=== PATIENT | male | born 1955 | race Caucasian/White ===

== ENCOUNTER 2020-02-20 12:35 | Emergency (ER) | payer OTHER ==
--- NOTE | 2020-02-20 13:40 | RAD REPORT ---
EXAM DESCRIPTION: US - Extremity Nonvascular Limited - 02/20/2020 1:25 pm CLINICAL HISTORY: Left forearm pain and swelling COMPARISON: None FINDINGS: Sonographic evaluation of the left posterior forearm does not reveal a cystic or solid mas s. No abscess demonstrated. IMPRESSION: No abscess seen
--- NOTE | 2020-02-20 13:46 | ER ---
Nurse's Notes [facility] Name: César Stevenson Age: 64 yrs Sex: Male : 1955 Arrival Date: 02/20/2020 Time: 12:38 Bed 23 Private MD: Diagnosis: Bitten or stung by nonvenomous insect and other nonvenomous arthropods Presentation: 02/19 12:45 Chief complaint: Patient states: I woke up to a rash like an insect bite on my L ca1 forearm this morning. It's swollen and it hurts. Coronavirus screen: Proceed with normal triage. Patient denies a cough. Patient denies shortness of breath or difficulty breathing. Patient denies measured and/or subjective temperature greater than 100.4F prior to today's visit. Patient denies travel on a cruise ship or to a country the [facility] currently lists as an affected area. Patient denies contact with known and/or suspected case of COVID-19. Ebola Screen: Patient negative for fever greater than or equal to 101.5 degrees Fahrenheit, and additional compatible Ebola Virus Disease symptoms Patient denies exposure to infectious person. Patient denies travel to an Ebola-affected area in the 21 days before illness onset. No symptoms or risks identified at this time. Initial Sepsis Screen: Does the patient meet any 2 criteria? No. Patient's initial sepsis screen is negative. Does the patient have a suspected source of infection? No. Patient's initial sepsis screen is negative. Risk Assessment: Do you want to hurt yourself or someone else? Patient reports no desire to harm self or others. Onset of symptoms was February 20, 2020. 12:45 Method Of Arrival: Ambulatory ca1 12:45 Acuity: GER 4 ca1 Historical: - Allergies: 12:48 No Known Allergies; ca1 - Home Meds: 12:48 None [Active]; ca1 - PMHx: 12:48 Hernia; ca1 - PSHx: 12:48 Hernia repair; ca1 - Immunization history:: Adult Immunizations up to date. - Social history:: Smoking status: Patient reports the use of cigarette tobacco products, smokes one-half pack cigarettes per day. Screenin:22 Abuse screen: Denies threats or abuse. Denies injuries from another. Nutritional iw screening: No deficits noted. Tuberculosis screening: No symptoms or risk factors identified. Assessment: 13:20 General: Appears in no apparent distress. comfortable, Behavior is calm, cooperative. iw Pain: Complains of pain in dorsal aspect of left forearm. Neuro: Level of Consciousness is awake, alert, obeys commands, Oriented to person, place, time, situation, Moves all extremities. Full function. Vital Signs: 12:45 BP 149 / 88; Pulse 81; Resp 18 S; Temp 97.9(TE); Pulse Ox 96% on R/A; Weight 70.31 kg ca1 (R); Height 5 ft. 9 in. (175.26 cm) (R); Pain 7/10; 12:45 Body Mass Index 22.89 (70.31 kg, 175.26 cm) ca1 ED Course: 12:38 Patient arrived in ED. as 12:38 Shwetha Singh FNP-C is PHCP. kb 12:38 Apolinar Burnham MD is Attending Physician. kb 12:47 Triage completed. ca1 12:48 Arm band placed on right wrist. ca1 13:20 Yovana Farr, RN is Primary Nurse. iw 13:26 US Extrmty Nonvasular Limited In Process Unspecified. EDMS 13:28 Ultrasound completed. hr Administered Medications: No medications were administered Outcome: 13:45 Discharge ordered by MD. kb 14:09 Patient left the ED. iw Signatures: Dispatcher [employer] EDMS Shwetha Singh FNP-C HEAD GAUGE UNIT OPERATOR-CkHui Christie hr Shannan Castañeda as Yovana Farr, STEVENSON GAMINO iw Mayra Walker RN RN ca1 Corrections: (The following items were deleted from the chart) 12:48 12:45 Acuity: GER 4 ca1 ca1 12:49 12:45 Acuity: GER 5 ca1 ca1 12:50 12:48 General: Appears in no apparent distress. comfortable, Behavior is calm, ca1 cooperative, appropriate for age, ca1 12:50 12:48 Pain: Complains of pain in left arm ca1 ca1 12:50 12:48 Neuro: Level of Consciousness is awake, alert, obeys commands, Oriented to ca1 person, place, time, situation, ca1 12:50 12:48 Derm: Skin is intact, is healthy with good turgor, Skin is pink, warm \T\ dry. ca1 ca1 12:50 12:48 Derm: Skin is intact, is healthy with good turgor, Skin is pink, warm \T\ dry. ca1 ca1 12:50 12:49 Musculoskeletal: Circulation, motion, and sensation intact. Capillary refill ca1 ca1
--- NOTE | 2020-02-20 13:46 | EDPHYS ---
Physician Documentation [facility] Name: César Stevenson Age: 64 yrs Sex: Male : 1955 Arrival Date: 02/20/2020 Time: 12:38 Bed 23 Private MD: ED Physician Apolinar Burnham HPI: 02/19 13:14 This 64 yrs old Male presents to ER via Ambulatory with complaints of Insect kb Bite. 13:14 the patient presents with a swollen area of the dorsal aspect of left forearm. kb Description: swollen. Onset: The symptoms/episode began/occurred this morning. Possible cause(s): spider bite. Associated signs and symptoms: Pertinent positives: swelling, Pertinent negatives: discharge, drainage, erythema, foreign body sensation, fever, headache, nausea, shortness of breath, vomiting. Modifying factors: the symptoms are alleviated by nothing, the symptoms are aggravated by nothing. Severity of symptoms: At their worst the symptoms were mild, in the emergency department the symptoms are unchanged. The patient has not experienced similar symptoms in the past. The patient has not recently seen a physician. Historical: - Allergies: 12:48 No Known Allergies; ca1 - Home Meds: 12:48 None [Active]; ca1 - PMHx: 12:48 Hernia; ca1 - PSHx: 12:48 Hernia repair; ca1 - Immunization history:: Adult Immunizations up to date. - Social history:: Smoking status: Patient reports the use of cigarette tobacco products, smokes one-half pack cigarettes per day. ROS: 13:12 Constitutional: Negative for fever, chills, and weight loss, Cardiovascular: Negative kb for chest pain, palpitations, and edema, Respiratory: Negative for shortness of breath, cough, wheezing, and pleuritic chest pain, Abdomen/GI: Negative for abdominal pain, nausea, vomiting, diarrhea, and constipation, MS/Extremity: Negative for injury and deformity, Neuro: Negative for headache, weakness, numbness, tingling, and seizure. 13:12 Skin: Positive for swelling, of the dorsal aspect of left forearm. Exam: 13:12 Constitutional: This is a well developed, well nourished patient who is awake, alert, kb and in no acute distress. Head/Face: Normocephalic, atraumatic. Chest/axilla: Normal chest wall appearance and motion. Nontender with no deformity. No lesions are appreciated. Cardiovascular: Regular rate and rhythm with a normal S1 and S2. No gallops, murmurs, or rubs. Normal PMI, no JVD. No pulse deficits. Respiratory: Lungs have equal breath sounds bilaterally, clear to auscultation and percussion. No rales, rhonchi or wheezes noted. No increased work of breathing, no retractions or nasal flaring. Abdomen/GI: Soft, non-tender, with normal bowel sounds. No distension or tympany. No guarding or rebound. No evidence of tenderness throughout. MS/ Extremity: Pulses equal, no cyanosis. Neurovascular intact. Full, normal range of motion. Neuro: Awake and alert, GCS 15, oriented to person, place, time, and situation. Cranial nerves II-XII grossly intact. Motor strength 5/5 in all extremities. Sensory grossly intact. Cerebellar exam normal. Normal gait. 13:12 Skin: small area of swelling to left forearm, no redness, warmth or drainage. Vital Signs: 12:45 BP 149 / 88; Pulse 81; Resp 18 S; Temp 97.9(TE); Pulse Ox 96% on R/A; Weight 70.31 kg ca1 (R); Height 5 ft. 9 in. (175.26 cm) (R); Pain 7/10; 12:45 Body Mass Index 22.89 (70.31 kg, 175.26 cm) ca1 MDM: 12:49 Patient medically screened. kb 13:12 Data reviewed: vital signs, nurses notes. Data interpreted: Pulse oximetry: on room air kb is 96 %. Interpretation: normal. 13:39 Counseling: I had a detailed discussion with the patient and/or guardian regarding: the kb historical points, exam findings, and any diagnostic results supporting the discharge/admit diagnosis, radiology results, the need for outpatient follow up, a family practitioner, to return to the emergency department if symptoms worsen or persist or if there are any questions or concerns that arise at home. 02/19 12:50 Order name: US Jean Carlos Godinez; Complete Time: 13:45 kb Administered Medications: No medications were administered Disposition: 15:38 Co-signature as Attending Physician, Apolinar Burnham MD. rn Disposition: 02/20/20 13:45 Discharged to Home. Impression: Bitten or stung by nonvenomous insect and other nonvenomous arthropods. - Condition is Stable. - Discharge Instructions: Insect Bite, [id number], Spider Bite, [id number]. - Medication Reconciliation Form, Thank You Letter, Antibiotic Education, Prescription Opioid Use form. - Follow up: Private Physician; When: 2 - 3 days; Reason: Recheck today's complaints, Continuance of care, Re-evaluation by your physician. Follow up: Emergency Department; When: As needed; Reason: Worsening of condition. Signatures: Dispatcher [employer] EDMS Shwetha Singh, ELECTROMECHANICAL INSPECTOR-C ELECTROMECHANICAL INSPECTOR-Ckb Yovana Farr, RN RN iw Apolinar Burnham MD MD rn Acjos, STEVENSON Nunez RN ca1 Corrections: (The following items were deleted from the chart) 14:09 13:45 02/20/2020 13:45 Discharged to Home. Impression: Bitten or stung by nonvenomous iw insect and other nonvenomous arthropods. Condition is Stable. Discharge Instructions: Insect Bite, [id number], Spider Bite, [id number]. Forms are Medication Reconciliation Form, Thank You Letter, Antibiotic Education, Prescription Opioid Use. Follow up: Private Physician; When: 2 - 3 days; Reason: Recheck today's complaints, Continuance of care, Re-evaluation by your physician. Follow up: Emergency Department; When: As needed; Reason: Worsening of condition. kb
[2020-02-20 14:17] VITALS: BP 149/88; TEMP 97.9; O2SAT 96
== END 2020-02-20 14:09 | disposition home or self-care (01) ==
LOC: ER 12:35
DX: S50.862A Insect bite (nonvenomous) of left forearm, initial encounter (principal); W57.XXXA Bitten or stung by nonvenomous insect and other nonvenomous arthropods, initial encounter; Y93.9 Activity, unspecified; Y92.9 Unspecified place or not applicable; F17.210 Nicotine dependence, cigarettes, uncomplicated
CPT/HCPCS: 76882; 99282

== ENCOUNTER 2020-05-23 18:04 | Emergency (ER) | payer OTHER ==
[2020-05-23 19:36] LABS: Absolute Lymphocytes (CBC) 2.9 K/uL (0.7-4.9); Basophils % 1.1 % (0-1.3); Hematocrit 47.7 % (39.6-49.0); Lymphocytes % 31.5 % (15.3-44.8); MPV 8.5 fL (7.6-11.3)
[2020-05-23 19:51] LABS: Albumin 4.2 g/dL (3.4-5.0); Bilirubin Direct 0.1 mg/dL (0-0.2); Bilirubin Total 0.4 mg/dL (0.2-1.0); Potassium 3.9 mmol/L (3.5-5.1)
--- NOTE | 2020-05-23 20:06 | ER ---
Nurse's Notes [facility] Name: César Stevenson Age: 64 yrs Sex: Male : 1955 Arrival Date: 05/23/2020 Time: 18:06 Bed 7 Private MD: Diagnosis: Person with feared health complaint in whom no diagnosis is made Presentation: 05/23 18:14 Chief complaint: Patient states: i think my eyes are yellowish/jaundice and i noticed mg2 bugs on my feet. Coronavirus screen: Client denies travel out of the [place] in the last 14 days. At this time, the client does not indicate any symptoms associated with coronavirus-19. Ebola Screen: No symptoms or risks identified at this time. Initial Sepsis Screen: Does the patient meet any 2 criteria? No. Patient's initial sepsis screen is negative. Does the patient have a suspected source of infection? No. Patient's initial sepsis screen is negative. Risk Assessment: Do you want to hurt yourself or someone else? Patient reports no desire to harm self or others. Onset of symptoms was May 23, 2020. 18:14 Method Of Arrival: Ambulatory mg2 18:14 Acuity: GER 4 mg2 Historical: - Allergies: 18:17 No Known Allergies; mg2 - Home Meds: 18:17 None [Active]; mg2 - PMHx: 18:17 Hernia; mg2 - PSHx: 18:17 Hernia repair; mg2 - Immunization history:: Flu vaccine status is unknown. - Social history:: Smoking status: Patient reports the use of cigarette tobacco products, smokes one pack cigarettes per day. Patient/guardian denies using alcohol, street drugs, IV drugs. Screenin:00 Abuse screen: Denies threats or abuse. Nutritional screening: No deficits noted. jb4 Tuberculosis screening: No symptoms or risk factors identified. Fall Risk None identified. Assessment: 19:00 General: Appears in no apparent distress. uncomfortable, Behavior is calm, cooperative, jb4 appropriate for age, Pt states " I saw something crawling in my leg earlier and it freaked me out. I don't see it now.". Pain: Denies pain. Neuro: Level of Consciousness is awake, alert, obeys commands, Oriented to person, place, time, situation. Cardiovascular: Patient's skin is warm and dry. Respiratory: Airway is patent Respiratory effort is even, unlabored, Respiratory pattern is regular, symmetrical. GI: No signs and/or symptoms were reported involving the gastrointestinal system. : No signs and/or symptoms were reported regarding the genitourinary system. EENT: No signs and/or symptoms were reported regarding the EENT system. Derm: Skin is intact, Skin is pink, warm \\T\\ dry. Musculoskeletal: Circulation, motion, and sensation intact. Range of motion:. 20:36 Reassessment: Patient appears in no apparent distress at this time. Patient and/or jb4 family updated on plan of care and expected duration. Pain level reassessed. Patient is alert, oriented x 3, equal unlabored respirations, skin warm/dry/pink. Pt verbalized understanding of d/c and follow up instructions. Denies questions or concerns. Ambulated out of ED with steady gait. Vital Signs: 18:14 BP 153 / 105; Pulse 107; Resp 18; Temp 99.1; Pulse Ox 100% on R/A; Weight 77.11 kg; mg2 Height 5 ft. 11 in. (180.34 cm); 20:36 BP 160 / 104; Pulse 86; Resp 16; Pulse Ox 98% on R/A; Pain 0/10; jb4 18:14 Body Mass Index 23.71 (77.11 kg, 180.34 cm) mg2 ED Course: 18:06 Patient arrived in ED. as 18:16 Triage completed. mg2 18:17 Arm band placed on. mg2 18:51 [facility]C [facility]. kb 18:51 Jono Thompson MD is Attending Physician. kb 19:00 Patient has correct armband on for positive identification. Bed in low position. Call jb4 light in reach. Side rails up X 1. Pulse ox on. NIBP on. 19:11 Dung Kumar, STEVENSON is Primary Nurse. jb4 19:19 Inserted saline lock: 20 gauge in right forearm, using aseptic technique. Blood oe collected. 20:37 No provider procedures requiring assistance completed. IV discontinued, intact, jb4 bleeding controlled, No redness/swelling at site. Pressure dressing applied. Administered Medications: No medications were administered Outcome: 20:05 Discharge ordered by . kb 20:37 Discharged to home ambulatory. jb4 20:37 Condition: stable 20:37 Discharge instructions given to patient, Instructed on discharge instructions, follow up and referral plans. Demonstrated understanding of instructions, follow-up care. 20:38 Patient left the ED. jb4 Signatures: Shwetha Singh FNP-C FNP-Shannan Guan James, RN RN jb4 Alen Valencia Michele, STEVENSON RN mg2 Corrections: (The following items were deleted from the chart) 20:37 20:36 BP 160 / 140; Pulse 86bpm; Resp 16bpm; Pulse Ox 98% RA; Pain 0/10; jb4 jb4
--- NOTE | 2020-05-23 20:06 | EDPHYS ---
Physician Documentation [facility] Name: César Stevenson Age: 64 yrs Sex: Male : 1955 Arrival Date: 05/23/2020 Time: 18:06 Bed 7 Private MD: ED Physician Jono Thompson HPI: 05/23 21:52 This 64 yrs old Male presents to ER via Ambulatory with complaints of Foreign kb Body, Jaundice. 21:52 "Earlier I thought my eyes looked yellow so I wanted to come get it checked out. Also, kb I noticed ants on my foot earlier but when I tried to wipe them off there was nothing there. I think I just got too hot today.". Onset: The symptoms/episode began/occurred today. Severity of symptoms: At their worst the symptoms were mild in the emergency department the symptoms have resolved. The patient has not experienced similar symptoms in the past. The patient has not recently seen a physician. Historical: - Allergies: 18:17 No Known Allergies; mg2 - Home Meds: 18:17 None [Active]; mg2 - PMHx: 18:17 Hernia; mg2 - PSHx: 18:17 Hernia repair; mg2 - Immunization history:: Flu vaccine status is unknown. - Social history:: Smoking status: Patient reports the use of cigarette tobacco products, smokes one pack cigarettes per day. Patient/guardian denies using alcohol, street drugs, IV drugs. ROS: 21:51 Constitutional: Negative for fever, chills, and weight loss, ENT: Negative for injury, kb pain, and discharge, Neck: Negative for injury, pain, and swelling, Cardiovascular: Negative for chest pain, palpitations, and edema, Respiratory: Negative for shortness of breath, cough, wheezing, and pleuritic chest pain, Abdomen/GI: Negative for abdominal pain, nausea, vomiting, diarrhea, and constipation, Back: Negative for injury and pain, MS/Extremity: Negative for injury and deformity, Skin: Negative for injury, rash, and discoloration, Neuro: Negative for headache, weakness, numbness, tingling, and seizure. 21:51 Eyes: Positive for yellow eyes. Exam: 21:51 Constitutional: This is a well developed, well nourished patient who is awake, alert, kb and in no acute distress. Head/Face: Normocephalic, atraumatic. Eyes: Pupils equal round and reactive to light, extra-ocular motions intact. Lids and lashes normal. Conjunctiva and sclera are non-icteric and not injected. Cornea within normal limits. Periorbital areas with no swelling, redness, or edema. ENT: Nares patent. No nasal discharge, no septal abnormalities noted. Tympanic membranes are normal and external auditory canals are clear. Oropharynx with no redness, swelling, or masses, exudates, or evidence of obstruction, uvula midline. Mucous membranes moist. Neck: Trachea midline, no thyromegaly or masses palpated, and no cervical lymphadenopathy. Supple, full range of motion without nuchal rigidity, or vertebral point tenderness. No Meningismus. Chest/axilla: Normal chest wall appearance and motion. Nontender with no deformity. No lesions are appreciated. Cardiovascular: Regular rate and rhythm with a normal S1 and S2. No gallops, murmurs, or rubs. Normal PMI, no JVD. No pulse deficits. Respiratory: Lungs have equal breath sounds bilaterally, clear to auscultation and percussion. No rales, rhonchi or wheezes noted. No increased work of breathing, no retractions or nasal flaring. Abdomen/GI: Soft, non-tender, with normal bowel sounds. No distension or tympany. No guarding or rebound. No evidence of tenderness throughout. Back: No spinal tenderness. No costovertebral tenderness. Full range of motion. Skin: Warm, dry with normal turgor. Normal color with no rashes, no lesions, and no evidence of cellulitis. MS/ Extremity: Pulses equal, no cyanosis. Neurovascular intact. Full, normal range of motion. Neuro: Awake and alert, GCS 15, oriented to person, place, time, and situation. Cranial nerves II-XII grossly intact. Motor strength 5/5 in all extremities. Sensory grossly intact. Cerebellar exam normal. Normal gait. Vital Signs: 18:14 BP 153 / 105; Pulse 107; Resp 18; Temp 99.1; Pulse Ox 100% on R/A; Weight 77.11 kg; mg2 Height 5 ft. 11 in. (180.34 cm); 20:36 BP 160 / 104; Pulse 86; Resp 16; Pulse Ox 98% on R/A; Pain 0/10; jb4 18:14 Body Mass Index 23.71 (77.11 kg, 180.34 cm) mg2 MDM: 18:51 Patient medically screened. kb 20:04 Data reviewed: vital signs, nurses notes. Data interpreted: Pulse oximetry: on room air kb is 100 %. Interpretation: normal. Counseling: I had a detailed discussion with the patient and/or guardian regarding: the historical points, exam findings, and any diagnostic results supporting the discharge/admit diagnosis, lab results, the need for outpatient follow up, a family practitioner, to return to the emergency department if symptoms worsen or persist or if there are any questions or concerns that arise at home. 05/23 19:07 Order name: Basic Metabolic Panel; Complete Time: 19:57 kb 05/23 19:07 Order name: CBC with Diff; Complete Time: 19:45 kb 05/23 19:07 Order name: Hepatic Function; Complete Time: 19:57 kb 05/23 19:07 Order name: IV Saline Lock; Complete Time: 19:18 kb 05/23 19:07 Order name: Labs collected and sent; Complete Time: 19:18 kb Administered Medications: No medications were administered Disposition: 05/24 11:15 Co-signature as Attending Physician, Jono Thompson MD I agree with the assessment and jeana plan of care. Disposition: 05/23/20 20:05 Discharged to Home. Impression: Person with feared health complaint in whom no diagnosis is made. - Condition is Stable. - Medication Reconciliation Form, Thank You Letter, Antibiotic Education, Prescription Opioid Use form. - Follow up: Emergency Department; When: As needed; Reason: Worsening of condition. Follow up: Private Physician; When: 2 - 3 days; Reason: Recheck today's complaints, Continuance of care, Re-evaluation by your physician. Signatures: Dispatcher [employer] EDRI Shwetha Singh, TATIANAC Jono Mota MD MD cha Bryson, James RN RN jb4 Johnson Zuñiga RN RN mg2 Corrections: (The following items were deleted from the chart) 05/23 20:38 20:05 05/23/2020 20:05 Discharged to Home. Impression: Person with feared health jb4 complaint in whom no diagnosis is made. Condition is Stable. Forms are Medication Reconciliation Form, Thank You Letter, Antibiotic Education, Prescription Opioid Use. Follow up: Emergency Department; When: As needed; Reason: Worsening of condition. Follow up: Private Physician; When: 2 - 3 days; Reason: Recheck today's complaints, Continuance of care, Re-evaluation by your physician. kb
[2020-05-23 21:24] VITALS: TEMP 99.1
[2020-05-23 21:25] VITALS: BP 160/104; O2SAT 98
== END 2020-05-23 20:38 | disposition home or self-care (01) ==
LOC: ER 18:04
DX: Z71.1 Person with feared health complaint in whom no diagnosis is made (principal); F17.210 Nicotine dependence, cigarettes, uncomplicated
CPT/HCPCS: 36415; 80048; 80076; 85025; 99283